=== PATIENT | male | born 1975 | race Caucasian/White ===

== ENCOUNTER → 2017-01-03 | Outpatient (CLI) | payer MEDICAID ==
[2017-01-03 11:03] LABS: HEMOGLOBIN 14.8 g/dL (14.1-18.0); LYMPH # 2.2 K/mm3 (0.7-4.5); LYMPH % 27.9 % (10-50)
[2017-01-03 12:53] LABS: BUN 12 mg/dL (7-18)
[2017-01-03 12:54] LABS: GFR (ESTIMATED) 108 ML/MIN (>60)
== END ==
LOC: LAB 10:30
PROVIDERS: Orthopaedic Surgery
DX: M75.101 Unspecified rotator cuff tear or rupture of right shoulder, not specified as traumatic (principal); M75.41 Impingement syndrome of right shoulder; Z01.818 Encounter for other preprocedural examination

== ENCOUNTER 2017-01-10 06:05 | Day surgery (SDC) | payer MEDICAID ==
[~2017-01-10] VITALS: Ht 175.3 cm; Wt 62.6 kg
[~2017-01-10 06:05] MED LIST: CIPRO 500MG TA500 MG PO; PERCOCET 325 MG1 TA3 PO; PHENERGAN 25MG.25 M1 PO; PREDNISONE 20MG20 MG PO; ULTRAM50 MG PO; VICODIN 7.5/501 EACH PO; VOLTAREN75 MG PO; XANAX 0.5MG TA0.5 MG PO
--- NOTE | 2017-01-10 11:11 | Anesthesia Record ---
Anesthesia Record Part I Total IV fluids: 2500 EBL (ml): 10 Urine Output: 900 B/P: 135/96 % SaO2: 100 Pulse: 51 Resps: 16 Temp: 97 Patient is: Awake, Stable Stable to PACU at: 1105 at 1110
--- NOTE | 2017-01-10 11:11 | Anesthesia Record ---
Anesthesia Record Part II Discharge time: 1135 Destination: Same day surgery PACU nurse assessment review? Yes Patient is: Stable Anesthesia complications? No at 1111
--- NOTE | 2017-01-10 11:37 | Operative Note ---
Procedure/Operative Record Date of Procedure: 01/10/17 Referring physician: Dr. Villasenor Pre-op diagnosis: 1. Full-thickness rotator cuff tear RIGHT shoulder 2. Biceps tendinopathy RIGHT shoulder 3. Subacromial bursitis RIGHT shoulder 4. Subacromial impingement RIGHT shoulder Post-op diagnosis: 1. Rotator cuff tear RIGHT shoulder- Full thickness tear of the supraspinatus tendon 2. Subacromial bursitis RIGHT shoulder 3. Subacromial impingement RIGHT shoulder 4. Degenerative labrum and synovitis RIGHT glenohumeral joint Procedure performed: 1. Arthroscopic repair of a rotator cuff tear, RIGHT shoulder. 2. Arthroscopic subacromial decompression with subacromial and subdeltoid bursectomy and bony acromioplasty, RIGHT shoulder. 3. Arthroscopic glenohumeral joint debridement, RIGHT shoulder. Surgeon: Matt SHAH,Shivam Barros Duplicate Maker(s): Nidhi Dent Anesthesia: General plus interscalene block Indications: Mr. Sykes is a 41-year-old [id number] gentleman with history of pain and disability in his RIGHT shoulder for a long time. He has weakness and difficulty with the use of the arm. Preoperative evaluation was consistent with the above mentioned diagnosis. After discussion of the risks and benefits of the surgical versus nonsurgical management, he elected to proceed with surgical remediation. Findings: There was a full-thickness, 1 cm crescent-shaped complete non-retracted tear of the supraspinatus tendon. The biceps tendon appeared normal without any tearing or synovitis. The labrum was frayed anteriorly and superiorly but not detached. The pouch was normal; the rotator interval was synovitic. The articular surface of the humerus and glenoid were without any significant degenerative changes. There was extensive subacromial and subdeltoid bursitis and the acromion had undersurface spurring over the anterolateral margin. Description of procedure: On the day of the procedure, the patient was positively identified in the preoperative area, his surgical site was marked and initialed by me. I reviewed the clinical, x- ray and MRI findings with the patient. We again had a detailed discussion about the diagnosis, implications of the same, natural history and management options including both nonsurgical and surgical options for his shoulder. Nonsurgical alternatives explained as well which in his case would be physical therapy, activity modification and effective pain management. Given his symptoms, clinical and MRI findings, functional status, he is opting for surgical management. The proposed surgical management for him includes an arthroscopic glenohumeral joint debridement, biceps tenotomy versus tenodesis if indicated at the time of surgery, sub acromial decompression and rotator cuff repair. I told him that there were no guarantees with surgery; he could be no better or even worse. The complications discussed include but are not limited to infection, injury to nerves and blood vessels, bleeding, hematoma, tendon injury , fluid extravasation, chondrolysis, injury to the articular surface, instrument failure, DVT/PE, incomplete relief/continued pain, failure of the condition to improve, incomplete return of function, shoulder instability, arthritis, stiffness, complex regional pain syndrome (CRPS), recurrence, hardware failure, anchor pullout and acromion fracture failure of the surgery to accomplish the desired goals, decreased use of the arm, loss of use of the arm, loss of the hand or arm, loss of life. Likely need for further surgery in the future has been discussed. I've indicated to the patient where the proposed incisions would be made and also discussed the possibility of extending the incisions or performing an open surgery if needed to accomplish an effective repair or biceps tenodesis. With regards to the biceps tendon- depending on the findings at arthroscopy, we talked about tenodesis versus tenotomy and pros and cons of each procedure. We discussed possible deformity of the anterior arm and muscle cramps with tenotomy as opposed to possible screw site pain with tenodesis and the extra surgery involved. He elected to have a biceps tenodesis if needed to do any surgery for the biceps tendon. We talked about doing most of the surgery arthroscopically with possibility of open surgery for rotator cuff repair and biceps tenodesis if felt necessary during surgery or because of poor visualization due to bleeding. We also discussed the postoperative recovery and rehabilitation protocol. He understands use of the abduction pillow and sling as part of the postoperative protocol. He understands that there is a chance that the tendon may not heal and there is a risk for cuff repair failure. He also understands the likely need for further surgery in future. I believe the patient to be well informed with regard to the proposed surgery. I told him that it would take up to a year for full recovery of his shoulder. All his questions were answered by me and he verbalized a good understanding. I performed a general physical examination, reviewed the consent form with him and signed the same. Patient was then brought to the operating room and a general anesthesia and interscalene block was administered by the registered nurse supervisor. He was then placed in a well-padded beach-chair position. The RIGHT upper extremity was then prepped and draped in the usual sterile fashion. A preprocedure timeout was performed in accordance with the hospital policy. Verbal verification of delivery of prophylactic intravenous antibiotics was performed. RIGHT shoulder arthroscopic landmarks were drawn on the skin with a marker pen. Examination of the shoulder under anesthesia showed very good range of motion and there was no instability. I then injected the proposed portal sites with 10 cc of 1% lidocaine with epinephrine and injected the glenohumeral joint with 40 mL of the irrigation fluid through the posterior portal using a spinal needle. The posterior viewing portal was established and the arthroscope was introduced into the glenohumeral joint. I then established an anterior interval portal under direct visualization and placed a purple cannula. As mentioned in the findings there was extensive labral fraying anteriorly and superiorly, a small full-thickness rotator cuff tear involving the supraspinatus tendon. The subscapular tendon was intact. The articular cartilage over the glenoid and humeral head appeared normal. The biceps tendon was pulled into the joint with a probe to visualize the extra- articular part. There was no synovitis or tears involving the biceps tendon, therefore, we decided not to perform any tenotomy or tenodesis of this. I then proceeded to debride the anterior and superior labrum. I then placed a marking suture through the supraspinatus cuff tear with a #1 PDS suture for easy identification of the tear on the bursal side. After this arthro-debridement of the glenohumeral joint, we turned our attention to the subacromial space. Upon entering the subacromial space through the posterior portal, a significant amount of bursitis was encountered. The space was noted to be quite tight under the acromion. I then created two direct lateral portals under vision and debrided the bursitis with a shaver and an ablator. After clearing the subacromial space of bursitis, the crescent shaped full-thickness rotator cuff tear involving the supraspinatus tendon was noted and it was corresponding to the tear noted and marked with the previous suture on the articular side. There is no tendon retraction. The tendon tear and the bony footprint was debrided. I then tested the mobility of the tendon with a grasper and noted that it was fairly mobile and was coming onto the footprint without any tension. I then prepared the footprint of the supraspinatus tendon with an arthroscopic shaver and ablator and made multiple holes through the cortical bone with a K wire. As the tendon tear is fairly small and non-retracted, I decided to perform a single row repair in a SpeedFix configuration. I then placed a fiber tape loop through the tendon and then placed a fiber link rip-stop suture medial to the fiber tape. I then passed the sutures through an [employer] BioComposite SwiveLock anchor. I then made a starting hole into the bone at the footprint with the provided all and placed anchor into the bone with appropriate tension over the sutures to complete the single repair in a single row SpeedFix configuration.This gave us an excellent construct with very good repair without dog ears either anteriorly or posteriorly. I verified that there was no gaping in the repair with the arm at the side and no motion with vigorous internal and external rotation. I then completed the subacromial and subdeltoid bursectomy. I then proceeded to perform a bony acromioplasty as the acromion was downsloping and there was a large spur at the antro-lateral corner. I did this with a 4 mm arthroscopic shaver, ablator and anna using a cutting block method. During this procedure I preserved most of the coracoacromial ligament. I then removed all instruments after suctioning out the fluid through one of the cannulas. The arthroscopic portals were then closed with 4-0 nylon sutures. Sterile non-adherent dressings were applied. The arm was placed in a sling with the abduction pillow. Patient was then reversed from the anesthetic and transferred onto the bed. He was then transported to the postoperative recovery area in stable condition. He tolerated the procedure well and there were no immediate complications. At the end of the procedure the swab, needle and instrument count was correct according to the scrub team. Postoperative plan: 1. The patient was discharged home following a period of observation. 2. He was prescribed oral pain medication and advised not to have any active or passive range of shoulder motion at this time. 3. He was advised not to take any nonsteroidal anti-inflammatory drugs and to avoid any tobacco usage. 4. Follow-up in my office in 3 or 4 days time for reducing the dressings and wound inspection and again in 10-14 days time for removal of sutures. 5. At 6 weeks he will begin gentle progressive 4 quadrant stretching. 6. Total sling time will be 6-8 weeks. 7. At 3 months he will have unrestricted 4 quadrant stretching, parascapular stabilization and strengthening. Radiographs will also be obtained at that visit. EBL (ml): 10 Implant: [employer] SpeedFix system with BioComposite SwiveLock anchor 1; 1 fiber tape and 1 fiber link sutures. (Industry medical customer service representative: Cristopher Roche from [employer]) Complications: None Specimens: None at 1478
[2017-01-10 14:38] VITALS: BP 147/91
== END 2017-01-10 12:38 | disposition home or self-care (01) ==
LOC: SDC 06:05
PROVIDERS: Orthopaedic Surgery
PROC: 0RNJ4ZZ Release Right Shoulder Joint, Percutaneous Endoscopic Approach (ICD-10-PCS; 2017-01-10)
PROC: 0LM14ZZ Reattachment of Right Shoulder Tendon, Percutaneous Endoscopic Approach (ICD-10-PCS; principal; 2017-01-10 07:30)
DX: M75.121 Complete rotator cuff tear or rupture of right shoulder, not specified as traumatic (principal); M75.51 Bursitis of right shoulder; M65.811 Other synovitis and tenosynovitis, right shoulder; Z79.899 Other long term (current) drug therapy; M75.41 Impingement syndrome of right shoulder; Z88.1 Allergy status to other antibiotic agents; Z88.0 Allergy status to penicillin
CPT/HCPCS: C1713; J2405